=== PATIENT | male | born 1960 | race Caucasian/White ===

== ENCOUNTER 2022-02-03 18:35 | Emergency (ER) | payer BC ==
--- NOTE | 2022-02-03 19:55 | XRAY Report ---
PROCEDURE: Toe(s) RT INDICATIONS: R 5th toe injury TECHNIQUE: 3 views of the fifth toe(s) acquired. COMPARISON: None FINDINGS: Bones: Fifth digit proximal phalangeal oblique fracture with minimal displacement. No dislocation. N o suspicious bony lesions. Soft tissues: No suspicious soft tissue densities. IMPRESSION: Fifth digit proximal phalangeal fracture. Reviewed by: Jones Rolle MD on 02/03/2022 7:54 PM PDT Approved by: Jones Rolle MD on 02/03/2022 7:54 PM PDT Station ID: [id number]
[2022-02-03 20:34] VITALS: BP 134/90
[2022-02-03] MEDS ORDERED: LIDOCAINE 1%-EPI 1:100000 20 ML MDV SUBQ STA (20:49)
--- NOTE | 2022-02-03 21:06 | ED Physician Documentation ---
History of Present Illness - Stated complaint Stated Complaint: R PINKY TOE INJ - Chief complaint Chief Complaint: Trauma Ext - Additonal information Additional information: Patient is a 61-year-old male presenting to the emergency department with right fifth toe injury. Kicked a coffee table earlier today. Has not seen an orthopedic surgeon for any reason for several years. Review of Systems Ten Systems: 10 systems reviewed and negative PD PAST MEDICAL HISTORY - Past Medical History Past Medical History: No Cardiovascular: None Respiratory: None Neuro: None Endocrine/Autoimmune: None GI: None : None HEENT: None Psych: None Musculoskeletal: None Derm: None - Past Surgical History Past Surgical History: Yes Ortho: Other - Present Medications Home Medications: Ambulatory Orders Medication Instructions Recorded Confirmed HYDROcod/ACETAM 5/325 [Beaver 5/325] 1 - 2 ea PO Q6H PRN #14 tablet 02/03/22 - Allergies Allergies/Adverse Reactions: Allergies Allergy/AdvReac Type Severity Reaction Status Date / Time No Known Drug Allergies Allergy Verified 02/03/22 18:38 - Social History Does the pt smoke?: No Smoking Status: Never smoker Does the pt drink ETOH?: Yes Does the pt have substance abuse?: No - Immunizations Immunizations are current?: No - POLST Patient has POLST: No PD ED PE NORMAL - General General: Alert and oriented X 3 - HEENT HEENT: Atraumatic - Respiratory Respiratory: No respiratory distress - Extremities Extremities: Other (Generalized tenderness to palpation of the right fifth toe. Normal capillary refill, normal sensation distal to the site of injury.) Results - Vitals Vitals: Vital Signs - 24 hr 02/03/22 02/03/22 02/03/22 18:38 19:17 20:33 Temperature 36.5 C 37.2 C Heart Rate 50 L 55 L Respiratory 16 16 15 Rate Blood Pressure 149/86 H 134/90 H O2 Saturation 99 99 Oxygen O2 Source Room air PD MEDICAL DECISION MAKING - ED course Complexity details: reviewed results, d/w patient, d/w family ED course: Patient patient 61-year-old male presenting with nondisplaced fracture to proximal right fifth metatarsal. Neurovascularly intact. Wound anesthetized with digital block for ulysses taping. Provided hard soled shoe. Given medication for pain control. Patient is from [facility]. Intends to follow-up with primary care for referral for orthopedic/podiatry as needed. Clear return precautions given. Departure - Departure Disposition: 01 Home, Self Care Clinical Impression: Toe fracture, right Instructions: ED Fx Foot Prescriptions: HYDROcod/ACETAM 5/325 [Beaver 5/325] 1 - 2 ea PO Q6H PRN #14 tablet PRN Reason: Pain Comments: Thank you for allowing us to care for you today [facility]. Today in the emergency department you are diagnosed with a fracture to your right fifth toe proximal phalanx. I recommend use of ulysses taping in the hard soled shoe provided here in the emergency department. Also be discharging with a pair of crutches for use as needed. I have sent some medication for pain to [facility] in [place]. Please be aware that this medication is both habit-forming and sedating. Should not be used if you are operating a motor vehicle, using of the machinery or you are the sole gaming commissioner of young children. Please contact your primary care doctor in order to arrange for follow-up and/or referral as needed. If it anytime you develop any new or worsening symptoms please not hesitate to return.
[2022-02-03] MEDS ORDERED: HYDROcod/ACETAM 5/325 MG TABLET PO STA (21:07)
== END 2022-02-03 21:18 | disposition home or self-care (01) ==
LOC: ED 18:35
DX: S92.514A Nondisplaced fracture of proximal phalanx of right lesser toe(s), initial encounter for closed fracture (principal); W22.8XXA Striking against or struck by other objects, initial encounter
CPT/HCPCS: 73660; 99281; 99283; A9270

== ENCOUNTER 2022-10-02 13:10 | Emergency (ER) | payer BC ==
[2022-10-02 13:34] VITALS: BP 118/86
--- NOTE | 2022-10-02 13:45 | ED Physician Documentation ---
PD HPI UPPER EXT INJURY - Stated complaint Stated Complaint: LT ARM INJURY - Chief complaint Chief Complaint: Ext Problem - History obtained from History obtained from: Patient - Additonal information Additional information: The patient comes to the emergency department chief complaint of proximal left forearm pain after a blunt injury. He states he was working on building a deck at his house when a board that he was prying up sprung back and struck him on the musculature of the ulnar side of his forearm. The patient states that he initially had a lot of pain and some swelling and numbness and tingling in his fingers. The patient states the numbness and tingling has mostly gone away and the swelling actually seems to be going down a little bit, though the tissue was quite sore in the area. He does have fairly good range of motion of the elbow but states it hurts to flex. He is mainly concerned because he has had a complex fracture of that same elbow before and has a lot to get down on the deck and wants to make sure he did not fracture anything. The patient denies any other complaints at this time. He took 3 Advil and they seem to be helping. He was not injured in any other way. PD PAST MEDICAL HISTORY - Past Medical History Cardiovascular: None Respiratory: None Neuro: None Endocrine/Autoimmune: None GI: None : None HEENT: None Psych: None Musculoskeletal: None Derm: None - Past Surgical History Past Surgical History: Yes Ortho: Other - Present Medications Home Medications: Ambulatory Orders Medication Instructions Recorded Confirmed No Known Home Medications 10/02/22 10/02/22 - Allergies Allergies/Adverse Reactions: Allergies Allergy/AdvReac Type Severity Reaction Status Date / Time No Known Drug Allergies Allergy Verified 02/03/22 18:38 - Social History Does the pt smoke?: No Smoking Status: Never smoker Does the pt drink ETOH?: Yes Does the pt have substance abuse?: No - Immunizations Immunizations are current?: No - POLST Patient has POLST: No Results - Vitals Vitals: Vital Signs - 24 hr 10/02/22 13:23 Temperature 36.4 C L Heart Rate 64 Respiratory 18 Rate Blood Pressure 118/86 H O2 Saturation 97 Oxygen O2 Source Room air - Rads (name of study) Left elbow x-ray series Relevant Findings:: Final report received, See rad report (No acute fracture; surgical hardware in place.) PD Medical Decision Making - ED course Complexity details: reviewed results, re-evaluated patient, considered differential, d/w patient, d/w family ED course: The patient did not wish symptomatic treatment in the emergency department and was mainly concerned about his elbow, since he had had surgery there previously. I did not have a high suspicion for fracture but did obtain a an elbow x-ray series on the left, which was found to be without acute findings. I discussed with the patient home management of the symptoms and the usual indications for follow-up and return. Departure - Departure Disposition: 01 Home, Self Care Clinical Impression: Contusion of arm, left Qualifiers: Encounter type: initial encounter Qualified Code(s): S40.022A - Contusion of left upper arm, initial encounter Condition: Stable Instructions: ED Contusion Upper Ext Comments: Your x-ray series looks good. There is no evidence of an acute fracture. Your surgical hardware is in good placement and your bony alignment at the joint also looks good. Most likely, you have bruised the muscle of your forearm. This will be sore for a while but should get better over the course of the week. You may use ice packs and anti-inflammatory such as ibuprofen to help with any disco mfort you may have. You may use the arm is much as you feel comfortable doing so. Discharge Date/Time: 10/02/22 14:26
--- NOTE | 2022-10-02 14:12 | XRAY Report ---
PROCEDURE: Elbow 3 View LT INDICATIONS: blunt injury/pain TECHNIQUE: 3 views of the elbow were acquired. COMPARISON: None. FINDINGS: Bones: No fractures or dislocations. No suspicious bony lesions. Internal fixation screws within the distal humerus are present. Soft tissues: No effusion. No suspicious soft tissue calcifications or masses. IMPRESSION: 1. Post surgical sequelae. 2. No acute fracture. No osseous lesion. If symptoms and/or clinical suspicion for pathology continue , further assessment with repeat plain films, or advanced imaging (e.g., CT, MRI, or bone scan) is re commended for further assessment. Reviewed by: Ryne Hayes MD on 10/02/2022 2:11 PM PDT Approved by: Ryne Hayes MD on 10/02/2022 2:11 PM PDT Station ID: [id number]
== END 2022-10-02 14:26 | disposition home or self-care (01) ==
LOC: ED 13:10
DX: S40.022A Contusion of left upper arm, initial encounter (principal); W22.8XXA Striking against or struck by other objects, initial encounter
CPT/HCPCS: 99283